=== PATIENT | female | born 1970 | race Caucasian/White ===

== ENCOUNTER 2016-12-28 16:35 | Emergency (ER) | payer SELFPAY ==
[~2016-12-28 16:35] MED LIST: AMBIEN10 MG PO; AMOXICILLIN875 MG PO; ASACOL HD800 MG PO; ASACOL400 MG PO; ASPIR 8181 MG PO; BACTRIM DS1 TAB PO; BENTYL20 MG PO; CHANTIX1 MG; CIPRO500 MG; CIPRO500 MG PO; CLARITIN10 M6 PO; CLEOCIN HCL300 MG PO; CLINDAMYCIN HC300 MG PO; COMBIVENT INH14.7 GM; COMBIVENT INH14.7 GM IH; COMPAZINE10 M PO; COUMADIN10 M1 PO; COUMADIN10 MG PO; COUMADIN5 MG PO; COUMADIN7.5 MG PO; CYCLOBENZAPRINE10 M1 PO; CYCLOBENZAPRINE5 M1 PO; DARVOCET-N 1001 TAB; DARVOCET-N 1001 TAB PO; DOXYCYCLINE HY100 M3 PO; FLAGYL500 MG; FLAGYL500 MG PO; FLEXERIL 10MG PO; FLEXERIL10 MG PO; FLEXERIL5 MG PO; H; IBUPROFEN; IBUPROFEN800 MG; IBUPROFEN800 MG PO; IRON1 TAB; KEFLEX500 MG PO; LEVAQUIN500 M1 PO; LORTAB 5/500 TA1 TAB; LORTAB 5/500 TA1 TAB PO; LORTAB 7.5/5001 TAB PO; LOVENOX120 MG/0.8 SQ; LOVENOX150 MG/1 M SC; METAXALONE800 MG PO; METRONIDAZOLE500 MG; MIDRIN CAPSULE1 CAP; NAPROSYN500 MG PO; NAPROXEN500 MG PO; NO HOME MEDS; NO MEDICATIONS; NORCO 5-325 TA1 EACH PO; NORCO 5/325 TAB1 TAB PO; NORCO 7.5/325 T1 TAB PO; OXYCODONE-ACET1 EAC4 PO; OXYCONTIN10 M2 PO; PEN-VEE K500 MG PO; PERCOCET 10-321 EACH PO; PERCOCET 5MG/AP1 TA1 PO; POTASSIUM CHLORIDE; POTASSIUM99 M4 PO; PREDNISONE20 M1 PO; PREDNISONE50 M1 PO; PROMETHAZINE25 MG PO; PROVENTIL HFA6.7 GM INH; PROVENTIL0.83 MG/ML IH; TOPAMAX25 M; TRAMADOL; TRAMADOL HCL50 MG PO; TRAZODONE100 MG PO; TYLENOL #31 TA1 PO; TYLENOL W/CODEI1 TAB PO; TYLENOL325 M2 PO; ULTRAM50 MG PO; VENTOLIN HFA18 G2 PO; VENTOLIN HFA18 GM; VENTOLIN HFA18 GM IH; VENTOLIN HFA8 GM IH; VIBRA-TABS100 MG PO; VICODIN 5/500 T1 TAB PO; VITAMIN D10000 UNIT PO; XARELTO20 M1 PO; ZOFRAN ODT4 MG/UDTAB PO; [UNRECOGNIZED DRUG - REMARK]; albuterol mdi
[2016-12-28] MEDS ORDERED: NO HOME MEDICATION XX (16:46)
[2016-12-28 18:16] LABS: CREATININE 0.87 mg/dl (0.50-1.10); eGFR VALUE FOR BLACK >90 mL/Min
[2016-12-28] MEDS ORDERED: XARELTO20 M1 PO (19:26)
[2016-12-28] MEDS ORDERED: HYDROCODON-ACE1 EA17 PO (19:26)
[2017-02-13] MEDS ORDERED: ALBUTEROL0.63 MG/1 INH (11:03)
[2017-02-13] MEDS ORDERED: PROVENTIL HFA6.7 G1 INH (11:03)
[2017-02-13] MEDS ORDERED: ALBUTEROL2.5 MG/3 M INH (11:04)
[2017-02-13] MEDS ORDERED: PROAIR HFA8.5 GM INH (11:04)
[2017-02-13] MEDS ORDERED: PREDNISONE10 M1 PO (11:04)
[2017-02-13] MEDS ORDERED: CIPRODEX OTIC7.5 M1 OT (11:06)
[2017-02-13] MEDS ORDERED: NORCO 5-325 TA1 EACH PO (11:58)
[2017-02-13] MEDS ORDERED: COMPAZINE10 MG PO (11:58)
[2017-02-13] MEDS ORDERED: XARELTO20 M1 PO (12:00)
[2017-02-18] MEDS ORDERED: XARELTO20 M1 PO (17:31)
[2017-02-22] MEDS ORDERED: NORVASC5 M2 PO (14:42)
[2017-02-22] MEDS ORDERED: ZOCOR20 M1 PO (14:42)
== END 2016-12-28 19:40 ==
LOC: EDMED 16:35
PROVIDERS: Emergency Medicine
DX: J44.9 Chronic obstructive pulmonary disease, unspecified (principal); F17.210 Nicotine dependence, cigarettes, uncomplicated; Z86.711 Personal history of pulmonary embolism; Z91.19 Patient's noncompliance with other medical treatment and regimen
CPT/HCPCS: Q9967